=== PATIENT | female | born 1980 | race Hispanic/Latino ===

== ENCOUNTER → 2021-09-17 | Emergency (ER) | payer BC ==
[~2021-09-17] VITALS: Ht 165.1 cm; Wt 78.9 kg
[~2021-09-17] MED LIST: CYCL5TAB PO; HYDROCODONE/ACETAMINOPHEN 5/325 MG TAB PO ONE; IBUP-2070 PO; KETOROLAC 30MG VIAL (30MG/ML) IM ONE
[2021-09-17 17:32] VITALS: BP 131/74
== END ==
LOC: EDH 17:29
DX: S60.212A Contusion of left wrist, initial encounter (principal); S63.592A Other specified sprain of left wrist, initial encounter; Z98.51 Tubal ligation status; Z79.899 Other long term (current) drug therapy; W18.39XA Other fall on same level, initial encounter; Y93.89 Activity, other specified; Y92.89 Other specified places as the place of occurrence of the external cause; Y99.8 Other external cause status
CPT/HCPCS: 73110; 96372; 99284; J1885